=== PATIENT | male | born 1995 | race Caucasian/White ===

== ENCOUNTER 2020-07-11 06:43 | Emergency (ER) | payer OTHER ==
[~2020-07-11] VITALS: Ht 170.2 cm; Wt 81.2 kg
[2020-07-11 06:53] VITALS: Ht 170.2 cm; Wt 81.2 kg
[2020-07-11 09:27] VITALS: BP 148/93
== END 2020-07-11 09:27 | disposition home or self-care (01) ==
LOC: ED 06:43
DX: S93.402A Sprain of unspecified ligament of left ankle, initial encounter (principal); S20.221A Contusion of right back wall of thorax, initial encounter; V29.9XXA Motorcycle rider (driver) (passenger) injured in unspecified traffic accident, initial encounter; Y93.89 Activity, other specified; Y92.89 Other specified places as the place of occurrence of the external cause; Y99.8 Other external cause status
CPT/HCPCS: Q0092